=== PATIENT | female | born 1940 | race Caucasian/White ===

== ENCOUNTER 2021-02-23 22:29 | Inpatient (IN) | payer MEDICARE ==
[~2021-02-23] VITALS: Ht 144.8 cm; Wt 83.0 kg
[2021-02-23] MEDS ORDERED: CALCIUM CITRATE PO (22:56)
[2021-02-23] MEDS ORDERED: ASPI81CH33 PO (22:56)
[2021-02-23] MEDS ORDERED: OMEP10CASR PO (22:56)
[2021-02-23] MEDS ORDERED: CHOLECALCIFEROL PO (22:56)
[2021-02-23] MEDS ORDERED: METF-839 PO (22:56)
[2021-02-23] MEDS ORDERED: LISI40TA4 PO (22:56)
[2021-02-23] MEDS ORDERED: ATEN50TA2 PO (22:56)
[2021-02-23] MEDS ORDERED: MULT1TAB8 PO (22:56)
[2021-02-23] MEDS ORDERED: SYNT112T2 PO (22:56)
[2021-02-23] MEDS ORDERED: SIMV20TA22 PO (22:56)
[2021-02-23] MEDS ORDERED: FISH1000 PO (22:56)
[2021-02-23] MEDS ORDERED: POTA10CA32 PO (22:56)
[2021-02-23] MEDS: IPRATROPIUM 0.5MG/ALBUTEROL 2.5MG INH SOL UD 3ML (DUONEB) NEB PRN ×3 (22:57→23:09)
[2021-02-23 23:06] LABS: BASO # 0.1 10^3/uL (0.0-0.2); BASO % 0.4 % (0.0-1.0); EOS # 0.2 10^3/uL (0.0-0.5); EOS % 1.1 % (0.0-3.0); HEMATOCRIT 30.6 % (36.0-47.0); LYMPH # 4.2 10^3/uL (1.5-5.0); LYMPH % 21.2 % (24.0-44.0); MEAN CORPUSCULAR HEMOGLOBIN 26.9 pg (27.0-33.0); MEAN CORPUSCULAR HGB CONC 29.4 g/dl (32.0-36.5); MEAN CORPUSCULAR VOLUME 91.6 fl (80.0-96.0); MONO # 1.3 10^3/uL (0.0-0.8); MONO % 6.8 % (2.0-8.0); NEUTROPHILS # 13.7 10^3/uL (1.5-8.5); NEUTROPHILS % 69.9 % (36.0-66.0); PLATELET COUNT, AUTOMATED 481 10^3/uL (150-450); RED BLOOD COUNT 3.34 10^6/uL (4.00-5.40); WHITE BLOOD COUNT 19.6 10^3/uL (4.0-10.0)
[2021-02-23 23:13] LABS: ALBUMIN 3.1 GM/DL (3.2-5.2); BILIRUBIN,DIRECT 0.1 MG/DL (0.0-0.2); BILIRUBIN,TOTAL 0.3 MG/DL (0.2-1.0); CALCIUM LEVEL 8.5 MG/DL (8.8-10.2); CK-MB VALUE MASS 1.8 NG/ML (<3.6); CREATININE FOR GFR 1.2 MG/DL (0.55-1.30); GLOMERULAR FILTRATION RATE 46.3 (>39); MB/CK RELATIVE INDEX 1.67 (< OR =4); POTASSIUM SERUM 5.3 MEQ/L (3.5-5.1); TOTAL PROTEIN 6.5 GM/DL (6.4-8.2); TROPONIN I 0.02 NG/ML (< 0.10)
--- NOTE | 2021-02-23 23:45 | REPVR ---
PROCEDURE INFORMATION: Exam: XR Chest Exam date and time: 02/23/2021 11:04 PM Age: 80 years old Clinical indication: Other: Dyspnea; Additional info: Dyspnea/cough TECHNIQUE: Imaging protocol: XR of the chest. Views: 1 view. COMPARISON: No relevant prior studies available. FINDINGS: Lungs: Basilar predominant opacities in both lung bases. Other linear interstitial densities in both lungs. Pleural spaces: No pleural effusion. No pneumothorax. Heart/Mediastinum: There is a small hiatal hernia. Mild cardiomegaly. Bones/joints: Bilateral shoulder arthroplasties. IMPRESSION: 1. Bibasilar opacities and linear interstitial densities suggesting pulmonary edema. 2. Small hiatal hernia. Electronically signed by: Moises Arthur On 02/23/2021 23:44:51 PM
[2021-02-24] MEDS ORDERED: cefTRIAXone SOD 1 GM in D5W MINI-BAG PLUS 50 ML IV ONE (01:40)
[2021-02-24] MEDS ORDERED: AZITHROMYCIN 250MG TABLET PO ONE (01:40)
[2021-02-24] MEDS ORDERED: FUROSEMIDE 40MG/4ML VIAL (J1940) IV ONE (01:40)
[2021-02-24] MEDS ORDERED: HumaLOG INSULIN (NovoLOG) PER UNIT SC ONE (02:25)
[2021-02-24] MEDS ORDERED: MOM 30ML SUSPENSION UDC PO PRN (02:55)
[2021-02-24] MEDS ORDERED: FUROSEMIDE 40MG/4ML VIAL (J1940) IV SCH (02:55)
[2021-02-24] MEDS ORDERED: GLUCOSE 4GM CHEW TABLET PO PRN (03:05)
[2021-02-24] MEDS ORDERED: DEXTROSE 50% 50 ML SYRINGE IV PRN (03:05)
[2021-02-24] MEDS ORDERED: GLUCAGON INJ 1MG VIAL SC PRN (03:05)
[2021-02-24] MEDS ORDERED: LISI40TA4 PO (03:49)
[2021-02-24] MEDS ORDERED: FURO20TA2 PO (03:49)
[2021-02-24] MEDS ORDERED: SYNT75TA PO (03:49)
[2021-02-24] MEDS ORDERED: ROSU20TA5 PO (03:49)
[2021-02-24] MEDS ORDERED: ATEN50TA2 PO (03:49)
[2021-02-24] MEDS ORDERED: ASPI-161 PO (03:49)
[2021-02-24] MEDS ORDERED: VITMTA PO (03:49)
[2021-02-24] MEDS ORDERED: OMEG10002 PO (03:49)
[2021-02-24] MEDS ORDERED: OYST500T91 PO (03:49)
[2021-02-24] MEDS ORDERED: METF500T13 PO (03:49)
[2021-02-24] MEDS ORDERED: OMEP1CAP73 PO (03:49)
[2021-02-24] MEDS ORDERED: POTA1TAB23 PO (03:49)
--- NOTE | 2021-02-24 03:52 | HPEPDOC ---
[facility] Medical History & Physical Date of Admission February 24, 2021 Date of Service: February 24, 2021 Attending Physician: CRISTAL YBARRA MD History and Physical CHIEF COMPLAINT: Shortness of breath HISTORY OF PRESENT ILLNESS: Patient has a wonderful 80-year-old female traveling to [place] from [place] ,with a past medical history of COPD (not on any home oxygen), RANDALL(patient uses CPAP regularly at home), pbt-xnjzdlt-favdhgkow diabetes mellitus type 2, hypertension, GERD, leaky valve(repair not indicated as per her internet specialist) presents to the emergency department with sudden onset of shortness of breath 3 days ago which caused worse with time and she was forced to come to the ED. Aspirate the patient she was doing apparently all right 3 days ago when she started a new medication for leg cramps, the drug is unspecified most likely gabapentin but she said it made her short of breath and she stopped taking it after 3 doses. The patient has also been noncompliant with her diuretic therapy stating the fact since she was traveling she didn't want to frequently stop to go to the bathroom. She reports bilateral leg swelling which she has not noticed until today. In the ED patient was found to have a saturation of 100% on a nonrebreather oxygen mask at a flow rate of 10, leukocytosis of 19.6 , a chest x-ray showing bibasilar opacities linear interstitial densities suggesting pulmonary edema, a high proBNP of 4754. She was immediately given 1 dose of IV Lasix, started on IV Rocephin and IV azithromycin and the patient was started on oxygen. PAST MEDICAL HISTORY: 1. COPD. 2. Hypertension. 3.. Diabetes Mellitus type II. 4.GERD 5.obstructive sleep apnea 6. Valvular disease unspecified PAST SURGICAL HISTORY: 1. Appendectomy. 2. Hysterectomy. SOCIAL HISTORY: Marital status: Resides in: home([place]) Tobacco use:former smoker,smoked pack and a half for 30 years. quit 30 years ago ETOH: occasional glass of wine Illicit drug use: denies IV drug use: denies Other relevant social factors: none FAMILY HISTORY: Father: DM-2 and COPD Mother: DM-2 and COPD Children: HEALTHY Hereditary Diseases: NONE Unexpected deaths due to medical reasons: NONE ALLERGIES: Please see below. REVIEW OF SYSTEMS: General: Reports: Normal Appetite; Denies: Fatigue, Malaise Constitutional: Denies: Fever, Chills, Sweats, Weakness, Malaise Eyes: Denies: Pain, Vision change ENT: Denies: Head Aches, Sore Throat, Epistaxis Skin: Denies: Rash, Lesions, Breakdown, Nail Changes Pulmonary: Reports: Dyspnea, Cough Cardiovascular: Denies Chest Pain, Denies Palpitations Gastrointestinal: Denies: Nausea, Vomiting, Abdominal Pain, diarrhea,constipation Genitourinary: Denies: Dysuria, Frequency, Incontinence, Hematuria Hematologic: Denies: Bruising, Bleeding Excessively Endocrine: Denies: Polydipsia, Polyphagia, Polyuria Musculoskeletal: Denies: Neck Pain, Back Pain Neurological: Denies: Weakness, Numbness, Incoordination, Change in Speech Psych: Reports: Mood Normal; Denies: Anxiety, Depression HOME MEDICATIONS: Please see below. PHYSICAL EXAMINATION: VITAL SIGNS: Temperature 97.9, pulse 80, respiratory rate 35, blood pressure 150/70, pulse oximetry 99 % on room air. GENERAL APPEARANCE: Patient looks alert, cooperative, not in any acute distress talking in full sentences, not using any accessory muscles of breathing. HEENT: Atraumatic, normocephalic, no conjunctival pallor, no scleral icterus PERRLA, EOMI. CARDIOVASCULAR: S1 and S2 heard, rate and rhythm normal. Faint systolic murmur heard over the aortic area LUNGS:. Diminished sounds bilaterally. Wheezing heard in the upper lobes bilaterally, crackles heard in the lower lobes bilaterally. ABDOMEN: Nondistended, nontender, no organomegaly, no rashes. EXTREMITIES: 2+ pedal edema B/L lower extremities, good volume pulses , good capillary refill + NEUROLOGICAL: 5/5 motor strength, sensations intact. PSYCHIATRIC:, Motor and affect normal LABORATORY DATA: See below. IMAGING: CXR done on the 2020: Shows diabetes predominantly 50s in both bases and the linear interstitial densities suggesting pulmonary edema MICROBIOLOGY: Please see below. ASSESSMENT AND PLAN:Patient has a wonderful 80-year-old female traveling to [place] from [place] ,with a past medical history of COPD (not on any home oxygen), RANDALL(patient uses CPAP regularly at home), cbe-wzwyvvq-zwdlysgkc diabetes mellitus type 2, hypertension, GERD, leaky valve(repair not indicated as per her internet specialist) presents to the emergency department with sudden onset of shortness of breath 3 days ago which caused worse with time and she was forced to come to the ED. Aspirate the patient she was doing apparently all right 3 days ago when she started a new medication for leg cramps, the drug is unspecified most likely gabapentin but she said it made her short of breath and she stopped taking it after 3 doses. The patient has also been noncompliant with her diuretic therapy stating the fact since she was traveling she didn't want to frequently stop to go to the bathroom. She reports bilateral leg swelling which she has not noticed until today. On to have leukocytosis with 19.6, pulmonary edema bilaterally on chest x-ray and increased proBNP. concerning for, . 1. Exacerbation of congestive heart failure secondary to underlying structural heart defect, possible valvular defect, noncompliance of diuretics: -. Patient has an elevated proBNP level. -Chest x-ray shows bilateral pleural effusions. Examination and auscultation support the presence of fluid in the lungs. -Patient is definitely fluid overloaded. IV Lasix 40 mg started as scheduled to maintain a net negative balance of 2000 mL . -Strict I&O's. -Weigh the patient daily. -Continuous monitoring of vitals -A 2-D echo has been ordered to find out any underlying structural heart defect leading to heart failure. -Patient is put on fluid restricted diet. -Elevated d-dimer levels possibly reactive.. 2. Possible underlying pneumonia: -Patient was started on empiric antibiotic therapy IV Rocephin and IV Zithromax. -1 dose given. -Patient had a leukocytosis of 19.6. Could be infective or reactive -Sputum cultures have been ordered 3. Hyperkalemia: -Patient had skipped some doses of diuretics. -Patient has been restarted on Lasix which should get the potassium levels down 4. Normocytic Anemia: -Most likely anemia of chronic disease. -Patient will need more extensive workup outpatient. 5. Suspected COPD/Obstructive sleep apnea: -Patient is currently on BiPAP. -Patient will continue to be on BiPAP 6. Ntl-giogkas-ecafiuord diabetes mellitus type 2: -Patient is started on a sliding scale insulin with a hypoglycemic protocol. 7. GERD: -Patient will continue to be on pantoprazole 20 mg twice a day. 8 hypothyroidism: -Home medications continued DVT prophylaxis: Teds and sequentials and 5000 international units of heparin Q 8 hours. DISPOSITION: Patient needs a workup of finding the cause of hand type of congestive heart failure. Most likely hospital stay will be 2 days. Vital Signs Vital Signs Date Time Temp Pulse Resp B/P (MAP) Pulse Ox O2 Delivery O2 Flow Rate FiO2 02/24/21 01:45 141/79 (99) 02/24/21 01:41 4 02/24/21 01:30 80 99 NIPPV (BIPAP/CPAP) 02/23/21 23:10 60 02/23/21 22:37 97.9 38 Laboratory Data Labs 24H Laboratory Tests 2 02/23/21 22:32: Immature Granulocyte % (Auto) 0.6, Neutrophils (%) (Auto) 69.9H, Lymphocytes (%) (Auto) 21.2L, Monocytes (%) (Auto) 6.8, Eosinophils (%) (Auto) 1.1, Basophils (%) (Auto) 0.4, Neutrophils # (Auto) 13.7H, Lymphocytes # (Auto) 4.2, Monocytes # (Auto) 1.3H, Eosinophils # (Auto) 0.2, Basophils # (Auto) 0.1, Nucleated Red Blood Cells % (auto) 0.0, Anion Gap 7L, Glomerular Filtration Rate 46.3, Lactic Acid Level 2.7*H, Calcium Level 8.5L, Total Bilirubin 0.3, Direct Bilirubin 0.1, Aspartate Amino Transf (AST/SGOT) 40H, Alanine Aminotransferase (ALT/SGPT) 26, Alkaline Phosphatase 91, Total Creatine Kinase 108, Creatine Kinase MB 1.8, Creatine Kinase MB Relative Index 1.67, Troponin I 0.02, CD-Vcw-S-Type Natriuretic Peptide 4754H, Total Protein 6.5, Albumin 3.1L, Albumin/Globulin Ratio 0.9L 02/23/21 23:09: POC pH (Misc Panel) 7.331L, POC Base Excess (Misc Panel) -1.0, POC Saturated Percent O2 (Misc) 99H, POC pO2 (Misc Panel) 163.0H, POC pCO2 (Misc Panel) 47.0H, POC HCO3 (Misc Panel) 24.8, POC Total CO2 (Misc Panel) 26.0 02/24/21 02:40: Bedside Glucose (Misc Panel) 183H 02/24/21 03:42: Bedside Glucose (Misc Panel) 221H CBC/BMP Laboratory Tests 02/23/21 22:32 Microbiology Microbiology 02/23/21 Blood Culture, Received Pending 02/23/21 Respiratory Virus Panel (PCR) ([facility]) - Final, Complete 02/23/21 Blood Culture, Received Pending Home Medications Scheduled Aspirin (Aspirin EC) 81 Mg Tablet.dr, 81 MG PO DAILY Atenolol (Atenolol) 50 Mg Tablet, 50 MG PO DAILY Calcium Carbonate/Vitamin D3 (Calcium 500-Vit D3 200 Tablet) 1 Each Tablet, 1 TAB PO QHS Furosemide (Furosemide) 20 Mg Tablet, 20 MG PO DAILY Levothyroxine Sodium (Synthroid) 75 Mcg Tablet, 75 MCG PO DAILY Lisinopril (Lisinopril) 40 Mg Tablet, 40 MG PO QHS Metformin HCl (Metformin HCl) 500 Mg Tablet, 500 MG PO BID Multivitamins (Thera M Plus Tablet) 1 Each Tablet, 1 TAB PO DAILY [place]-3/Dha/Epa/Fish Oil (Fish Oil 1,000 mg Softgel) 1 Each Capsule, 1 CAP PO BID Omeprazole (Omeprazole) 20 Mg Capsule.dr, 20 MG PO DAILY Potassium Chloride (Potassium Chloride) 10 Meq Tablet.er, 10 MEQ PO DAILY Rosuvastatin Calcium (Rosuvastatin Calcium) 20 Mg Tablet, 20 MG PO QHS Allergies Coded Allergies: Sulfa (Sulfonamide Antibiotics) (Verified Allergy, Unknown, 02/23/21) A-FIB/CHADSVASC A-FIB History Current/History of A-Fib/PAF?: No Current PO Anticoag Therapy: No Age/Risk Factor Scoring CHADSVASC: CHADSVASC Response (Comments) Value Age Risk Factor Age >/= 75 years old 2 Gender Risk Factor Female 1 Hx of CHF Yes 1 Hx of HTN Yes 1 Hx of Stroke/TIA/or VTE No 0 Hx of Diabetes Yes 1 Hx of Vascular Disease No 0 Total 6 Treatment Treatment ordered: NONE Reason Anticoagulant not given: Other Other reason anticoagulant not: Pt is on DVT prophylaxis-heparin subcut GME ATTESTATION GME ATTESTATION My faculty preceptor for this patient encounter was physically present during the encounter and was fully available. All aspects of the patient interview, examination, medical decision making process, and medical care plan development were reviewed and approved by the faculty preceptor. The faculty preceptor is aware and concurs with the plan as stated in the body of this note and will attest to such by his/her cosignature. Manan Reed MD February 24, 2021 03:52
[2021-02-24 04:00] VITALS: BP 111/58
--- NOTE | 2021-02-24 04:01 | IPNPDOC ---
Text Note Date of Service The patient was seen on 02/24/21. NOTE Time of service 335AM Ms Garcia is a 80 yr old [place] resident w NIDDM, hypothyroidism, DLP & obesity who presented w c/o sudden onset dyspnea; her PE was remarkable for dif ficulties talking full sentences and JVP. She will be admitted for management of acute unspecified CHF likely 2/2 missing doses of lasix, anemia likely HENNY, hyperkalemia, lactic acidosis possibly type B, and elevated AST likely 2/2 congestion. Plan: we will c/w diuresis & obtain an Echo / she denies having CHF but had a PCI at [facility] in [place] (we will request records) / I suspect the bila teral infiltrates are due to pulmonary edema rather than PNA and the SIRS is reactive. rest per 's H&P VS,Fishbone, I+O VS, Erick, I+O Laboratory Tests 02/23/21 22:32 Vital Signs Date Time Temp Pulse Resp B/P (MAP) Pulse Ox O2 Delivery O2 Flow Rate FiO2 02/24/21 01:45 141/79 (99) 02/24/21 01:41 4 02/24/21 01:30 80 99 NIPPV (BIPAP/CPAP) 02/23/21 23:10 60 02/23/21 22:37 97.9 38 I&O- Last 24 Hours up to 6 AM 02/24/21 05:59 Intake Total 50 ml Balance 50 ml CRISTLA YBARRA MD February 24, 2021 04:01
[2021-02-24 04:34] LABS: INR 0.97; PROTHROMBIN TIME 13.1 SECONDS (12.5-14.3)
[2021-02-24 04:37] LABS: D-DIMER QUANT 1428.85 ng/ml (<500)
[2021-02-24 04:47] LABS: HEMOGLOBIN A1c 5.9 %
--- NOTE | 2021-02-24 05:38 | ECGEPIP ---
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
[2021-02-24 06:02] LABS: FERRITIN 15 NG/ML (8-252); IRON (FE) 10 UG/DL (50-170); PERCENT SATURATION 2.2 % (13.2-45.0); POTASSIUM SERUM 5.7 MEQ/L (3.5-5.1); TOTAL IRON BINDING CAPACITY 452 UG/DL (250-450); TROPONIN I 0.43 NG/ML (< 0.10)
[2021-02-24] MEDS ORDERED: CALCIUM GLUCONATE 1,000 MG in D5W MINI-BAG PLUS 100 ML IV ONE (06:25)
[2021-02-24 08:00] VITALS: BP 126/56
[2021-02-24] MEDS: LEVOTHYROXINE 75MCG TABLET (0.075MG) PO SCH (08:04)
[2021-02-24] MEDS: HumaLOG INSULIN (NovoLOG) PER UNIT SC SCH ×3 (08:04→17:23)
[2021-02-24] MEDS: FUROSEMIDE 40MG/4ML VIAL (J1940) IV SCH ×4 (08:05→23:59)
[2021-02-24] MEDS: HEPARIN SOD (PORCINE) 5000UNITS/ML 1ML VIAL/SYRINGE SC SCH ×3 (08:05→21:14)
[2021-02-24] MEDS: atenoloL 50 MG TAB PO SCH (08:12)
[2021-02-24] MEDS: ASPIRIN 81MG ENTERIC TABLET PO SCH (08:12)
[2021-02-24] MEDS: OMEPRAZOLE 20 MG CAP PO SCH (08:12)
--- NOTE | 2021-02-24 08:17 | ECGEPIP ---
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
[2021-02-24 08:32] LABS: ALBUMIN 3.1 GM/DL (3.2-5.2); BILIRUBIN,TOTAL 0.3 MG/DL (0.2-1.0); CALCIUM LEVEL 8.9 MG/DL (8.8-10.2); CREATININE FOR GFR 1.03 MG/DL (0.55-1.30); GLOMERULAR FILTRATION RATE 55.2 (>39); MAGNESIUM LEVEL 1.8 MG/DL (1.8-2.4); POTASSIUM SERUM 5.5 MEQ/L (3.5-5.1); TOTAL PROTEIN 6.5 GM/DL (6.4-8.2)
[2021-02-24 08:54] LABS: VITAMIN B12 LEVEL 330 PG/ML (247-911)
[2021-02-24 08:55] LABS: FOLATE > 24.0 NG/ML (>5.4)
[2021-02-24] MEDS ORDERED: POTASSIUM CHLORIDE 10 MEQ SR TABLET PO SCH (09:00)
[2021-02-24] MEDS ORDERED: TORSEMIDE 20 MG TAB PO SCH (09:00)
[2021-02-24] MEDS ORDERED: ASPIRIN 81MG ENTERIC TABLET PO SCH (09:00)
[2021-02-24 09:18] LABS: HEMATOCRIT 27.5 % (36.0-47.0); HEMOGLOBIN 8.5 g/dl (12.0-15.5); MEAN CORPUSCULAR HGB CONC 30.9 g/dl (32.0-36.5); MEAN CORPUSCULAR VOLUME 87.3 fl (80.0-96.0); PLATELET COUNT, AUTOMATED 427 10^3/uL (150-450); RED BLOOD COUNT 3.15 10^6/uL (4.00-5.40)
[2021-02-24 10:15] VITALS: BP 115/54
[2021-02-24 10:16] LABS: ATYPICAL LYMPH 1 % (0-5); LYMPHOCYTES 5 % (16-44); MONOCYTES 2 % (0-5); NEUTROPHILS 91 % (28-66); PLATELET ESTIMATE NORMAL (NORMAL)
[2021-02-24 10:17] LABS: POLYCHROMASIA 1+
--- NOTE | 2021-02-24 10:23 | IPNPDOC ---
Date Seen The patient was seen on 02/24/21. Progress Note SUBJECTIVE: Patient as seen and examined this morning. There have been no adverse events reported overnight. She was started on Bilevel but has since been on nasal cannula. Patient had stated that she was not taking her lasix when she driving up from [place] to [place]. Additionally, she is not adhering to any fluid restriction and also had been taking her potassium supplements and lisinopril. This morning she states that she feels better and her shortness of breath has improved. OBJECTIVE PHYSICAL EXAMINATION: VITAL SIGNS: Please see below. GENERAL: Awake, alert, and oriented. Appears in no acute distress. Lying comfortably in bed HEENT: Atraumatic, normocephalic. Eyes are nonicteric. Trachea is midline. Mucous membranes are pink and moist. CARDIOVASCULAR: Normal S1, S2. Regular rate and rhythm. No clicks rubs or murmurs. No JVD RESPIRATORY: Clear breath sounds bilaterally. Slightly diminished in the bases. No wheezes, rhonchi, or rales ABDOMINAL: Soft, nondistended, nontender. Normoactive bowel sounds throughout EXTREMITIES: Trace bilateral lower extremity edema. Full and equal pulses in bilateral upper and lower extremities NEUROLOGICAL: No focal neurological deficits PSYCHOLOGICAL: Mood and affect appear appropriate LABORATORY DATA, IMAGING STUDIES, MICROBIOLOGY: Please see below. Echocardiogram: pending DVT prophylaxis ordered?: heparin ASSESSMENT AND PLAN: Patient is a 80 year old female with a past medical history significant for COPD, RANDALL, DMII, HTN, GERD, and possible CHF who presented to the [facility] ER with complaint of shortness of breath. She had recently traveled from [place] to [place] to help her sister. During her trip she stopped taking her lasix because she did not want to have to stop and use the bathroom frequently. Additionally the patient had not been following any fluid restriction. She had been taking the rest of her medications as prescribed including her potassium and lisinopril. On presentation to the ED the patient was hypoxic with chest x- ray demonstrating vascular congestion. She was started on IV lasix with improvem ent in symptoms PROBLEMS: 1. Shortness of breath likely 2/2 acute decompensated CHF unspecified LVEF -Patient presented with shortness of breath, elevated BNP, vascular congestion on chest x-ray. Reportedly not taking lasix for 4-5 days and not adhering to fluid restriction -She has been started on Lasix 40mg q6h. She has diuresed about 1000ml since admission and is currently net negative. Her shortness of breath and hypoxia has improved. -Continue Lasix 40 IV -1800 ml fluid restriction and 2g sodium diet -Echocardiogram currently pending -I&O's 2. Hyperkalemia -Potassium on admission was 5.7. This is likely secondary to potassium supplementation and lisinopril. She does not have a kidney injury. There are no changes in EKG. The patient has complained of leg cramping which could be secondary to her hypokalemia -Patient is currently on lasix. Will continue lasix. -Will trend BMP. Anticipate that her hypokalemia will improve with lasix. Will hold lisinopril -Will continue telemetry until hyperkalemia resolves 3. Elevated Troponin likely secondary to demand -Troponin elevated at 0.43 and plateued at 0.66. This is likely secondary to her acute CHF decompensation. Patient stated that she had a cardiac catheterization however it was done years ago. She has never had any stents placed and was told that she had a "leaky valve" but no indication for surgical repair 4. Normocytic Anemia -Iron studies suggesting iron deficiency. Anemia etiology could be mul tifactorial. Will supplement iron. -Monitor Hgb 5. RANDALL -Patient has CPAP at home. She was placed on Bilevel on admission. Her oxygen requirements have decreased. Patient may use her own CPAP at night 6. Diabetes Mellitus Type 2 -HgbA1C of 5.9 -Sliding scale insulin -Hold metformin 7. Hypertension -Atenolol 8. HLD -Crestor 9. Hypothyroidism -Synthroid 10. DVT prophylaxis -Heparin SQ DISPOSITION: Transfer to Med/Surg tele. Continue diuresis. Like discharge in 24- 48 hours VS, I&O, 24H, Erick Vital Signs/I&O Vital Signs Date Time Temp Pulse Resp B/P (MAP) Pulse Ox O2 Delivery O2 Flow Rate FiO2 02/24/21 08:12 80 125/62 02/24/21 08:00 98.5 16 94 Room Air 02/24/21 04:00 4.0 02/23/21 23:10 60 I&O- Last 24 Hours up to 6 AM 02/24/21 06:00 Intake Total 50 ml Output Total 1125 ml Balance -1075 ml Laboratory Data 24H LABS Laboratory Tests 2 02/23/21 22:32: Immature Granulocyte % (Auto) 0.6, Neutrophils (%) (Auto) 69.9H, Lymphocytes (%) (Auto) 21.2L, Monocytes (%) (Auto) 6.8, Eosinophils (%) (Auto) 1.1, Basophils (%) (Auto) 0.4, Neutrophils # (Auto) 13.7H, Lymphocytes # (Auto) 4.2, Monocytes # (Auto) 1.3H, Eosinophils # (Auto) 0.2, Basophils # (Auto) 0.1, Nucleated Red Blood Cells % (auto) 0.0, Anion Gap 7L, Glomerular Filtration Rate 46.3, Lactic Acid Level 2.7*H, Calcium Level 8.5L, Total Bilirubin 0.3, Direct Bilirubin 0.1, Aspartate Amino Transf (AST/SGOT) 40H, Alanine Aminotransferase (ALT/SGPT) 26, Alkaline Phosphatase 91, Total Creatine Kinase 108, Creatine Kinase MB 1.8, C reatine Kinase MB Relative Index 1.67, Troponin I 0.02, JM-Lqw-S-Type Natriuretic Peptide 4754H, Total Protein 6.5, Albumin 3.1L, Albumin/Globulin Ratio 0.9L 02/23/21 23:09: POC pH (Misc Panel) 7.331L, POC Base Excess (Misc Panel) -1.0, POC Saturated Percent O2 (Misc) 99H, POC pO2 (Misc Panel) 163.0H, POC pCO2 (Misc Panel) 47.0H, POC HCO3 (Misc Panel) 24.8, POC Total CO2 (Misc Panel) 26.0 02/24/21 02:40: Bedside Glucose (Misc Panel) 183H 02/24/21 03:42: Bedside Glucose (Misc Panel) 221H 02/24/21 04:06: Methicillin-Resist S.aureus DNA PCR NOT DETECTED 02/24/21 04:12: Neutrophils (%) (Auto) , Nucleated Red Blood Cells % (auto) 0.0, Prothrombin Time 13.1, Prothromb Time International Ratio 0.97, Activated Partial Thromboplast Time 25.0, D-Dimer, Quantitative 1428.85H, Estimated Mean Plasma Glucose 123H, Hemoglobin A1c 5.9, Lactic Acid Level 1.4, Iron Level 10L, Total Iron Binding Capacity 452H, Transferrin % Saturation 2.2L, Ferritin 15, Troponin I 0.43#H, Vitamin B12 Level 330, Folate > 24.0, Procalcitonin 0.09 02/24/21 07:06: Troponin I 0.66#H, Anion Gap 8, Glomerular Filtration Rate 55.2, Calcium Level 8.9, Magnesium Level 1.8, Total Bilirubin 0.3, Aspartate Amino Transf (AST/SGOT) 28, Alanine Aminotransferase (ALT/SGPT) 23, Alkaline Phosphatase 85, Total C reatine Kinase 96, Total Protein 6.5, Albumin 3.1L, Albumin/Globulin Ratio 0.9L 02/24/21 07:35: Bedside Glucose (Misc Panel) 184H 02/24/21 08:56: Troponin I 0.65H CBC/BMP Laboratory Tests 02/23/21 22:32 02/24/21 04:12 02/24/21 07:06 Microbiology Microbiology 02/23/21 Blood Culture, Received Pending 02/23/21 Respiratory Virus Panel (PCR) ([facility]) - Final, Complete 02/23/21 Blood Culture, Received Pending GME ATTESTATION GME ATTESTATION My faculty preceptor for this patient encounter was physically present during the encounter and was fully available. All aspects of the patient interview, examination, medical decision making process, and medical care plan development were reviewed and approved by the faculty preceptor. The faculty preceptor is a ortiz and concurs with the plan as stated in the body of this note and will attest to such by his/her cosignature. ATTENDING NOTE I, Tati Van, have independently examined this patient and performed my own physical exam, as well as reviewed the documentation and edited where necessary. I have discussed in detail with the resident / student the findings and plan of treatment as documented by the resident / student and edited their note. I agree with their findings and treatment plan and have edited their documentation. I will continue to follow the patient during this hospital stay. BONI MORRIS DO February 24, 2021 10:23 TATI VAN MD February 24, 2021 10:54
[2021-02-24] MEDS ORDERED: SLF 3 ML SYR IV PRN (10:35)
[2021-02-24] MEDS: FERROUS GLUCONATE 324 MG TAB PO SCH (10:45)
[2021-02-24 12:00] VITALS: BP 112/56
[2021-02-24] MEDS: SLF 3 ML SYR IV SCH ×2 (14:00→21:14)
[2021-02-24] MEDS: ACETAMINOPHEN TAB 650MG DOSE (2X325MG) PO PRN ×2 (14:00→18:44)
[2021-02-24 16:00] VITALS: BP 122/52
[2021-02-24 20:00] VITALS: BP 142/61
[2021-02-24] MEDS ORDERED: lisinopriL 40 MG TAB PO SCH (21:00)
[2021-02-24] MEDS ORDERED: ROSUVASTATIN 10 MG TAB (CRESTOR) PO SCH (21:00)
[2021-02-24] MEDS ORDERED: HumaLOG INSULIN (NovoLOG) PER UNIT SC SCH (21:00)
[2021-02-25] VITALS: BP 140/65
[2021-02-25 04:00] VITALS: BP 138/63
[2021-02-25] MEDS: HEPARIN SOD (PORCINE) 5000UNITS/ML 1ML VIAL/SYRINGE SC SCH (05:47)
[2021-02-25] MEDS: LEVOTHYROXINE 75MCG TABLET (0.075MG) PO SCH (05:47)
[2021-02-25] MEDS: FUROSEMIDE 40MG/4ML VIAL (J1940) IV SCH ×2 (05:47→12:00)
[2021-02-25] MEDS: SLF 3 ML SYR IV SCH (05:49)
[2021-02-25 06:16] LABS: CHOLESTEROL RISK RATIO 2.014 (<5)
[2021-02-25 07:39] VITALS: BP 146/63
[2021-02-25 07:44] LABS: HEMATOCRIT 26.6 % (36.0-47.0); HEMOGLOBIN 8.3 g/dl (12.0-15.5); MEAN CORPUSCULAR HEMOGLOBIN 26.9 pg (27.0-33.0); MEAN CORPUSCULAR HGB CONC 31.2 g/dl (32.0-36.5); MEAN CORPUSCULAR VOLUME 86.4 fl (80.0-96.0); PLATELET COUNT, AUTOMATED 438 10^3/uL (150-450); RED BLOOD COUNT 3.08 10^6/uL (4.00-5.40)
[2021-02-25] MEDS: HumaLOG INSULIN (NovoLOG) PER UNIT SC SCH ×2 (07:49→13:08)
[2021-02-25 07:59] LABS: CALCIUM LEVEL 9.1 MG/DL (8.8-10.2); CREATININE FOR GFR 1.3 MG/DL (0.55-1.30); GLOMERULAR FILTRATION RATE 42.2 (>39); POTASSIUM SERUM 4.6 MEQ/L (3.5-5.1)
[2021-02-25 08:20] VITALS: BP 146/63
[2021-02-25] MEDS: ASPIRIN 81MG ENTERIC TABLET PO SCH (08:20)
[2021-02-25] MEDS: atenoloL 50 MG TAB PO SCH (08:20)
[2021-02-25] MEDS: FERROUS GLUCONATE 324 MG TAB PO SCH (08:20)
[2021-02-25] MEDS: OMEPRAZOLE 20 MG CAP PO SCH (08:20)
[2021-02-25 12:00] VITALS: BP 121/60
--- NOTE | 2021-02-25 19:05 | DS.PDOC ---
Discharge Summary General Date of Admission February 24, 2021 at 03:07 Date of Discharge 02/25/21 Attending Physician: TATI VAN MD Discharge Summary PROCEDURES PERFORMED DURING STAY: [None]. ADMITTING DIAGNOSES: 1. Acute Decompensated Congestive Heart Failure 2. Hyperkalemia 3. Normocytic Anemia 4. RANDALL 5. Diabetes Mellitus Type 2 6. Hypothyroidism DISCHARGE DIAGNOSES: 1. Acute Decompensated Congestive Heart Failure 2. Hyperkalemia 3. Normocytic Anemia 4. RANDALL 5. Diabetes Mellitus Type 2 6. Hypothyroidism COMPLICATIONS/CHIEF COMPLAINT: Anemia,Sepsis,Pneumonia. HISTORY OF PRESENT ILLNESS: Patient is a 80 year old female with a past medical history significant for COPD, CHF unspecified, RANDALL, DMII, HTN who presented to the [facility] ER with complaint of shortness of breath. Patient had stated that she was traveling up to [place] from [place] to help her sister who recently had shoulder surgery. Patient stated that she stopped taking her lasix because she did not want to stop frequently for bathroom breaks. Additionally the patient had stated that she was not adhering to a fluid restriction. The patient had said that she was taking all of her other medications as prescribed including her supplemental potassium supplements. She stated that she started to develop l eg cramping as well as shortness of breath which brought her to the ED. On presentation to the ED the patient appeared to be volume overloaded. Chest X- ray demonstrated vascular congestion. Additionally she was noted to be hyperkalemic. She was given IV lasix. The patient was noted to require high levels of supplemental oxygen and was placed on bilevel as it was felt this may help with decompensated CHF. Patient was then admitted to hospitalist service. HOSPITAL COURSE: On evaluation in the AM the patient was noted to have significant urinary output. Her breathing had improved. Her potassium level was trending down as well. It was felt that the patients decompensation was likely 2/2 medication and dietary noncompliance. Her hyperkalemia was likely secondary to taking potassium supplements with lisinopril and not taking her lasix. On discharge the patient was instructed not to take potassium supplements as even with high doses of IV lasix her potassium remained on the higher end of normal. Medical Conditions Addressed: 1. Shortness of breath likely 2/2 acute decompensated CHF unspecified LVEF -Patient presented with shortness of breath, elevated BNP, vascular congestion on chest x-ray. Reportedly not taking lasix for 4-5 days and not adhering to fluid restriction -She was treated with lasix 40mg q6h. -1800 ml fluid restriction and 2g sodium diet -Echocardiogram completed 2. Hyperkalemia -Potassium on admission was 5.7. This is likely secondary to potassium sup plementation and lisinopril. She does not have a kidney injury. There are no changes in EKG. The patient has complained of leg cramping which could be secondary to her hypokalemia -Potassium supplement discontinued on discharge. 3. Elevated Troponin likely secondary to demand -Troponin elevated at 0.43 and plateued at 0.66. This is likely secondary to her acute CHF decompensation. Patient stated that she had a cardiac catheterization however it was done years ago. She has never had any stents placed and was told that she had a "leaky valve" but no indication for surgical repair 4. Normocytic Anemia -Iron studies suggesting iron deficiency. Anemia etiology could be multifactorial. Will supplement iron. -Monitor Hgb 5. RANDALL -Patient has CPAP at home. She was placed on Bilevel on admission. Her oxygen requirements have decreased. Patient may use her own CPAP at night 6. Diabetes Mellitus Type 2 -HgbA1C of 5.9 -Sliding scale insulin -Hold metformin 7. Hypertension -Atenolol 8. HLD -Crestor 9. Hypothyroidism -Synthroid DISCHARGE MEDICATIONS: Please see below. ALLERGIES: Please see below. PHYSICAL EXAMINATION ON DISCHARGE: VITAL SIGNS: Please see below. GENERAL: Awake, alert, and oriented. Appears in no acute distress. Lying comfortably in bed HEENT: Atraumatic, normocephalic. Eyes are nonicteric. Trachea is midline. Mucous membranes are pink and moist. CARDIOVASCULAR: Normal S1, S2. Regular rate and rhythm. No clicks rubs or murmurs. No JVD RESPIRATORY: Clear breath sounds bilaterally. Slightly diminished in the bases. No wheezes, rhonchi, or rales ABDOMINAL: Soft, nondistended, nontender. Normoactive bowel sounds throughout EXTREMITIES: Trace bilateral lower extremity edema. Full and equal pulses in bilateral upper and lower extremities NEUROLOGICAL: No focal neurological deficits PSYCHOLOGICAL: Mood and affect appear appropriate LABORATORY DATA: Please see below. IMAGING: PROCEDURE INFORMATION: Exam: XR Chest Exam date and time: 02/23/2021 11:04 PM Age: 80 years old Clinical indication: Other: Dyspnea; Additional info: Dyspnea/cough TECHNIQUE: Imaging protocol: XR of the chest. Views: 1 view. COMPARISON: No relevant prior studies available. FINDINGS: Lungs: Basilar predominant opacities in both lung bases. Other linear interstitial densities in both lungs. Pleural spaces: No pleural effusion. No pneumothorax. Heart/Mediastinum: There is a small hiatal hernia. Mild cardiomegaly. Bones/joints: Bilateral shoulder arthroplasties. IMPRESSION: 1. Bibasilar opacities and linear interstitial densities suggesting pulmonary edema. 2. Small hiatal hernia. Electronically signed by: Moises Arthur On 02/23/2021 23:44:51 PM PROGNOSIS: Good ACTIVITY: [As tolerated]. DIET: 2G sodium restricted, 2000cc fluid restriction DISCHARGE PLAN: Patient is to be discharged home. She is to continue her previou s medications with exception to potassium supplementation. She is to follow-up with her PCP when she returns to [place] DISPOSITION: 01 Home, Self-Care. DISCHARGE CONDITION: [Stable]. TIME SPENT ON DISCHARGE: Greater than 40 minutes. Vital Signs/I&Os Vital Signs Date Time Temp Pulse Resp B/P (MAP) Pulse Ox O2 Delivery O2 Flow Rate FiO2 02/25/21 12:00 96.9 67 20 121/60 (80) 94 Room Air 02/24/21 04:00 4.0 02/23/21 23:10 60 I&O- Last 24 Hours up to 6 AM 02/25/21 06:00 Intake Total 1570 ml Output Total 3125 ml Balance -1555 ml Laboratory Data Labs 24H Laboratory Tests 2 02/24/21 20:58: Bedside Glucose (Misc Panel) 183H 02/25/21 05:22: Nucleated Red Blood Cells % (auto) 0.0 02/25/21 05:26: Anion Gap 7L, Glomerular Filtration Rate 42.2, Calcium Level 9.1, Triglycerides Level 137, Total Cholesterol 139, LDL Cholesterol 43, Non-HDL Cholesterol (LDL + VLDL) 70, Total HDL Cholesterol 69, Cholesterol/HDL Ratio 2.014 02/25/21 07:38: Bedside Glucose (Misc Panel) 146H 02/25/21 12:04: Bedside Glucose (Misc Panel) 118H CBC/BMP Laboratory Tests 02/25/21 05:22 02/25/21 05:26 FSBS Laboratory Tests Test 02/24/21 20:58 02/25/21 07:38 02/25/21 12:04 Range/Units Bedside Glucose (Misc Panel) 183 146 118 83-110 MG/DL Microbiology Microbiology 02/23/21 Blood Culture - Preliminary, Resulted No growth after 24 hours . All specim... 02/23/21 Respiratory Virus Panel (PCR) ([facility]) - Final, Complete 02/23/21 Blood Culture - Preliminary, Resulted No growth after 24 hours . All specim... Discharge Medications Scheduled Aspirin (Aspirin EC) 81 Mg Tablet.dr, 81 MG PO DAILY, (Reported) Atenolol (Atenolol) 50 Mg Tablet, 50 MG PO DAILY, (Reported) Calcium Carbonate/Vitamin D3 (Calcium 500-Vit D3 200 Tablet) 1 Each Tablet, 1 TAB PO QHS, (Reported) Furosemide (Furosemide) 20 Mg Tablet, 20 MG PO DAILY, (Reported) Levothyroxine Sodium (Synthroid) 75 Mcg Tablet, 75 MCG PO DAILY, (Reported) Lisinopril (Lisinopril) 40 Mg Tablet, 40 MG PO QHS, (Reported) Metformin HCl (Metformin HCl) 500 Mg Tablet, 500 MG PO BID, (Reported) Multivitamins (Thera M Plus Tablet) 1 Each Tablet, 1 TAB PO DAILY, (Reported) Corning-3/Dha/Epa/Fish Oil (Fish Oil 1,000 mg Softgel) 1 Each Capsule, 1 CAP PO BID, (Reported) Omeprazole (Omeprazole) 20 Mg Capsule.dr, 20 MG PO DAILY, (Reported) Rosuvastatin Calcium (Rosuvastatin Calcium) 20 Mg Tablet, 20 MG PO QHS, (Reported) Allergies Coded Allergies: Sulfa (Sulfonamide Antibiotics) (Verified Allergy, Unknown, 02/23/21) GME ATTESTATION GME ATTESTATION My faculty preceptor for this patient encounter was physically present during the encounter and was fully available. All aspects of the patient interview, examination, medical decision making process, and medical care plan development were reviewed and approved by the faculty preceptor. The faculty preceptor is aware and concurs with the plan as stated in the body of this note and will attest to such by his/her cosignature. ATTENDING NOTE I, Tati Van, have independently examined this patient and performed my own physical exam, as well as reviewed the documentation and edited where necessary. I have discussed in detail with the resident / student the findings and plan of treatment as documented by the resident / student and edited their note. I agree with their findings and treatment plan and have edited their documentation. I will continue to follow the patient during this hospital stay. Time spent on discharge 35 minutes BONI MORRIS DO February 25, 2021 17:04 TATI VAN MD February 26, 2021 15:06
--- NOTE | 2021-02-28 09:34 | ECHO ---
DATE OF PROCEDURE: 02/24/2021 Age: 80 Gender: Female REFERRING PHYSICIAN: Anna Arellano MD. PATIENT LOCATION: Room 3205. REASON FOR STUDY: Shortness of breath. 2D MEASUREMENTS: IVS 1.3 cm LV 4.5 cm LVPW 1.3 cm LA 4.8 cm Aorta 2.6 cm IVC 2.2 cm DOPPLER MEASUREMENT Peak velocity across the aortic valve 2.1 m/s Peak velocity across the LVOT 0.72 m/s Mitral E 1.0 Mitral A 1.2 with a ratio of 0.9 Maximum tricuspid valve velocity 3.5 m/s 2D COMMENTS: 1. Normal left ventricular size with mildly increased left ventricular wall thickness. Left ventricular systolic function appeared to be mildly depressed. The anterior apical septum appeared to be hypokinetic. The estimated left ventricular systolic ejection fraction is 40% to 45%. 2. Mildly enlarged left atrium. The right atrium appeared to be minimally enlarged. Normal right ventricle. The atrial septum appeared to be normal without evidence of defect or shunt. 3. Normal aortic root. 4. No pericardial effusion seen. 5. Mildly calcified aortic valve with normal leaflet excursion. Moderately calcified mitral annulus with normal anterior mitral valve leaflet motion. Normal tricuspid valve and pulmonic valve. The proximal pulmonary artery branches were not well visualized. 6. The inferior vena cava was mildly enlarged, central venous pressure might be elevated. DOPPLER: Detects trace aortic regurgitation, mild mitral regurgitation, [id number] tricuspid regurgitation. The calculated pulmonary artery systolic pressure varied between 40 to 50 mmHg. Abnormal relaxation pattern was noted across the mitral valve leaflets, as well as the mitral valve annulus consistent with features of grade 1 left ventricular diastolic dysfunction. IMPRESSION: 1. [id number] depressed global left ventricular systolic function with regional wall motion abnormalities. There are some features of left ventricular diastolic dysfunction manifested by abnormal relaxation. 2. Aortic valve sclerosis with trace aortic regurgitation and mild aortic stenosis. 3. Mitral annular calcification with mild mitral regurgitation and a mildly enlarged left atrium. 4. [id number] tricuspid regurgitation with moderate pulmonary hypertension. MTDD
== END 2021-02-25 14:00 | disposition home or self-care (01) | DRG 293 ==
LOC: M ED 22:29 → ENRESERV 02-24 02:35 → M ED INP 02-24 03:07 → M ICU 02-24 03:17 → M PCU 02-24 10:15
PROVIDERS: ADMIT Internal Medicine; ATTEND Internal Medicine
DX: I11.0 Hypertensive heart disease with heart failure (principal); E11.9 Type 2 diabetes mellitus without complications; E87.5 Hyperkalemia; G47.33 Obstructive sleep apnea (adult) (pediatric); E03.9 Hypothyroidism, unspecified; K44.9 Diaphragmatic hernia without obstruction or gangrene; I50.9 Heart failure, unspecified; Z79.899 Other long term (current) drug therapy; Z88.2 Allergy status to sulfonamides; J44.9 Chronic obstructive pulmonary disease, unspecified; K21.9 Gastro-esophageal reflux disease without esophagitis; Z87.891 Personal history of nicotine dependence; Z91.14 Patient's other noncompliance with medication regimen; D64.9 Anemia, unspecified